=== PATIENT | female | born 1980 | race Caucasian/White ===

== ENCOUNTER 2017-03-23 14:43 | Outpatient (CLI) | payer OTHER ==
[~2017-03-23] VITALS: Ht 157.5 cm; Wt 76.0 kg
[~2017-03-23 14:43] MED LIST: PRENAT PO
[2017-03-23] MEDS ORDERED: LEVO50TA74 PO (14:52)
--- NOTE | 2017-03-23 15:39 | RADRPT ---
PROCEDURE: US OB biophysical profile. CLINICAL INDICATION: decreased movements, IUGR TECHNIQUE: Multiple sonographic images of the pelvis were obtained. The images were reviewed on a PACS workstation. COMPARISON: No prior studies are available for comparison. FINDINGS: There is a single viable intrauterine gestation. Cardiac activity is present with 123 beats per min abigail. There is a vertex presentation. The placenta is posterior. There is no evidence of placental abruption. There is a normal amount of amniotic fluid with an RIZWANA = 13.6 cm. Biophysical profile: movement 2/2 tone 2/2. breathing 2/2 RIZWANA 2/2 Total 05/25 RPTAT: AA . IMPRESSION: Normal biophysical profile. . .Braden Hatfield MD, MD Date Time Electronically viewed and signed by .Braden Hatfield MD, MD on 03/23/2017 15:38 .S/
--- NOTE | 2017-03-23 15:40 | RADRPT ---
PROCEDURE: US OB. CLINICAL INDICATION: Size and dates , IUGR TECHNIQUE: Multiple sonographic images of the pelvis and gravid uterus were obtained. The images were reviewed on a PACS workstation. COMPARISON: No prior studies are available for comparison. FINDINGS: There is a single viable intrauterine gestation. Cardiac activity is present with 131 beats per min [place]k. There is a vertex presentation. The placenta is posterior. There is no evidence of placental abruption. There is a normal amount of amniotic fluid with an RIZWANA = 13.6 cm. Measurements were made in order to determine age. The results are as follows: BPD =8.9 cm HC =31.5 cm AC =33.1 cm FL =7.1 cm Estimated gestational age of approximately 36 weeks and 2 days based on ultrasound measurements. Clinical age: 37 weeks and 6 days. The estimated date of delivery is 04/18/17, based on ultrasound measurements. The EFW = 2974 g, 28%, based on LMP age. RPTAT: AA IMPRESSION: Single viable intrauterine gestation of approximately 36 weeks and 2 days based on ultrasound measu rements. .Braden Hatfield MD, Date Time Electronically viewed and signed by .Braden Hatfield MD, on 03/23/2017 15:39 .S/
[2017-03-23 15:52] VITALS: Ht 157.5 cm; Wt 76.0 kg
[2017-03-23 15:53] VITALS: BP 129/83; PULSE 79; RESP 19
--- NOTE | 2017-03-23 16:28 | TRIAGE ---
OB Triage Datetime Report Generated by CPN: 03/23/2017 16:28 Datetime: 03/23/2017 16:13 Maternal Assessment Level of Consciousness: Fully Conscious DTR's/Clonus: DTRs 1+ Headache: Denies Blurred Vision: No Nausea/Vomiting: Denies RUQ Epigastric Pain: Denies Facial Edema: None Labor Evaluation Frequency: X1 Monitor Mode: External Duration (sec)2399: 50 Quality: Mild Pattern: Normal: <= 5 Contractions in 10 Minutes Resting Tone Arab: Relaxed Heart Rate FHR Baseline Rate: 125 Monitor Mode: External US Variability: Moderate 6-25 bpm Accelerations: 15X15 Decelerations: None Category: Category I Pain Assessment Pain Scale: 0 Pain Presence: None/Denies Pain Type: N/A Pain Goal: 3 Vaginal Exam Membrane Status: Intact Datetime: 03/23/2017 16:01 Maternal Assessment Level of Consciousness: Fully Conscious DTR's/Clonus: DTRs 1+ Headache: Denies Blurred Vision: No Respiratory Effort: Unlabored Breath Sounds, Left: Clear and Equal Breath Sounds, Right: Clear and Equal Nausea/Vomiting: Denies RUQ Epigastric Pain: Denies Facial Edema: None Labor Evaluation Frequency: X1 Monitor Mode: External Duration (sec)2399: 60 Quality: Mild Pattern: Normal: <= 5 Contractions in 10 Minutes Resting Tone Arab: Relaxed Heart Rate FHR Baseline Rate: 125 Monitor Mode: External US Variability: Moderate 6-25 bpm Accelerations: 15X15 Decelerations: None Category: Category I Pain Presence: None/Denies Pain Type: N/A Vaginal Exam Membrane Status: Intact Datetime: 03/23/2017 15:43 Monitor Mode: External US Datetime: 03/23/2017 15:10 Maternal Assessment Level of Consciousness: Fully Conscious DTR's/Clonus: DTRs 1+ Headache: Denies Blurred Vision: No Respiratory Effort: Unlabored Breath Sounds, Left: Clear and Equal Breath Sounds, Right: Clear and Equal Nausea/Vomiting: Denies RUQ Epigastric Pain: Denies Facial Edema: None Labor Evaluation Frequency: X1 Monitor Mode: External Duration (sec)2399: 60 Quality: Mild Pattern: Normal: <= 5 Contractions in 10 Minutes Resting Tone Arab: Relaxed Heart Rate FHR Baseline Rate: 135 Monitor Mode: External US Variability: Moderate 6-25 bpm Accelerations: 15X15 Decelerations: None Category: Category I Pain Assessment Pain Scale: 0 Pain Presence: None/Denies Pain Type: N/A Pain Goal: 3 Vaginal Exam Membrane Status: Intact Datetime: 03/23/2017 14:59 EGA: 37.6 Datetime: 03/23/2017 14:40 Stage of : OB Triage Time of Arrival: 03/23/2017 14:40 Arrived By: Ambulatory Arrived From: Office Chief Complaint: PT CAME IN FROM MD OFFICE TO R/O IUGR Movement: Present Contractions: Denies/Absent Rupture of Membranes: Denies Vaginal Discharge: Denies Recent Sexual Intercouse: Denies Abdominal Trauma: Not Applicable Patient Complaints: Other Additional Patient Complaints: NONE Time Provider Notified: 03/23/2017 14:40 Provider Notified: DR ARANDA Initial Plan: ASIF HOBBS AND EFW
--- NOTE | 2017-03-23 16:37 | CONS ---
Date/Time of Note Date/Time of Note DATE: 03/23/17 TIME: 16:31 Consultation Date/Type/Reason Admit Date/Time March 23, 2007 OB triage consult Reason for Consultation This patient is a 36 years old 5 para 3 1 with estimated date of confinement is April 11, 2016 which makes her 37 weeks and 6 days She came to the triage due to intrauterine growth retardation for further evaluation regarding this diagnosis. She is currently on levothyroxine 50 mcg and her regular vitamin Physical examination she is a well-developed well-nourished lady near term Her general vital signs appear to be normal blood pressure 129/83, pulse rate 79 , respiration 18. On examination her abdomen was soft irregular occasional contractions The heart tones were normal with good variability occasional acceleration and no deceleration. On pelvic examination her cervix was closed thick and high no evidence of labor or bleeding Constitutional: No chills, No diaphoresis, No disoriented, No febrile, No improved, No no complaints, No other, No poor po, No requiring IVF, No requiring O2 Eyes: No discharge, No no complaints, No other, No pain, No redness, No visual change ENT: No bleeding, No congestion, No discharge, No dysphagia, No no complaints, No other, No pain, No sore throat Respiratory: No cough, No no complaints, No other, No pain, No pleuritic pain, No shortness of breath, No sputum, No wheezing Cardiovascular: No chest pain, No edema, No lightheadedness, No no complaints, No orthopenea, No other, No palpitations, No paroxysmal nocturnal dyspnea Gastrointestinal: other (Her cervix was closed thick and Crista as I mentioned before), No blood, No constipation, No decreased appetite, No diarrhea, No flatus, No nausea, No no complaints, No pain, No passing stool, No vomiting Genitourinary: No bleeding, No discharge, No dysuria, No flank pain, No hematuria, No no complaints, No other Musculoskeletal: No back pain, No bone/joint pain, No neck pain, No no complaints, No other, No restricted range of motion, No swelling Skin: No bruising, No erythema, No laceration, No no complaints, No other, No pruritis, No rash, No skin lesions Neurologic: other (Knee-jerk reflex were normal), No confusion, No dizziness, No focal-weakness, No headache, No no complaints , No seizure, No syncope Endocrine: No dry skin, No no complaints, No other, No polydypsia, No polyuria , No temp intolerance Additional Comments On ultrasound study there was a single viable intrauterine gestation with heart rate of 131 bpm, in vertex presentation for gestational age based on the measurement was 37 weeks and 6 days with estimated date of April 18, 2017 estimated , weight was 2974 g which makes her 28% based on last LMP. she had a biophysical profile result was 05/25 and her RIZWANA was reported 13.6 cm . Disposition; with these finding patient was discharged home to be followed in clinic and to return for any other concerns about the other aspect of including IUGR Social History Smoking Status: Never smoker Exam/Review of Systems Vital Signs Vitals Vital Signs Date Time Temp Pulse Resp B/P Pulse Ox O2 Delivery O2 Flow Rate FiO2 03/23/17 15:53 98.6 79 19 129/83 99 MELLISSA ADAN MD Mar 23, 2017 16:36
== END 2017-03-23 16:27 | disposition home or self-care (01) ==
LOC: OBT 14:43 → L-D 14:44 → OBT 16:27
PROVIDERS: ATTEND Obstetrics & Gynecology
DX: O36.5930 Maternal care for other known or suspected poor fetal growth, third trimester, not applicable or unspecified (principal); O26.843 Uterine size-date discrepancy, third trimester; O36.8130 Decreased fetal movements, third trimester, not applicable or unspecified; O09.523 Supervision of elderly multigravida, third trimester; Z3A.37 37 weeks gestation of pregnancy
CPT/HCPCS: 76815; 76818; Z7500; G0463

== ENCOUNTER 2017-03-31 09:00 | Inpatient (IN) | payer OTHER ==
[~2017-03-31] VITALS: Ht 154.9 cm; Wt 76.3 kg
[~2017-03-31 09:00] MED LIST changes: +LEVO50TA74 PO
[2017-03-31 09:32] VITALS: Ht 154.9 cm; Wt 76.3 kg
[2017-03-31] MEDS ORDERED: FER325 PO (09:35)
[2017-03-31] MEDS ORDERED: LIDOCAINE 1% (MPF) 30 ML INJ INJ PRN (10:00)
[2017-03-31] MEDS ORDERED: CARBOPROST 250 MCG INJ IM PRN (10:00)
[2017-03-31] MEDS ORDERED: OXYTOCIN 30 UNITS/LR 500 ML IV PRN (10:00)
[2017-03-31] MEDS ORDERED: BUTORPHANOL 2 MG INJ IV PRN (10:00)
[2017-03-31] MEDS ORDERED: OXYTOCIN 30 UNITS/LR 500 ML IV SCH (10:00)
[2017-03-31] MEDS ORDERED: IBUPROFEN 600 MG TAB PO PRN (10:00)
[2017-03-31] MEDS ORDERED: METHYLERGONOVINE 0.2 MG INJ IM PRN (10:00)
[2017-03-31] MEDS ORDERED: MISOPROSTOL 200 MCG TAB PR PRN (10:00)
[2017-03-31] MEDS: LACTATED RINGER'S 1,000 ML IV SCH ×2 (10:22→18:17)
[2017-03-31 10:25] VITALS: BP 118/72; RESP 19
[2017-03-31] MEDS ORDERED: AMPICILLIN 2 GM/NS (PMX) 100 ML IVPB ONE (10:30)
[2017-03-31 10:58] LABS: ADD SCAN DIFF NO
[2017-03-31] MEDS ORDERED: DINOPROSTONE 10 MG VAG SUPP VAG ONE (11:00)
[2017-03-31 11:04] LABS: BASOPHILS % 0.3 % (0.0-2.0); EOSINOPHILS # 0.1 10^3/ul (0.0-0.5); EOSINOPHILS % 1.6 % (0.0-7.0); HEMATOCRIT 37.2 % (37.0-47.0); HEMOGLOBIN 12.8 g/dl (12.0-16.0); LYMPHOCYTES # 1.7 10^3/ul (0.8-2.9); LYMPHOCYTES % 24.2 % (15.0-51.0); MEAN CORPUSCULAR HEMOGLOBIN 31.4 pg (29.0-33.0); MEAN CORPUSCULAR HGB CONC 34.4 g/dl (32.0-37.0); MEAN CORPUSCULAR VOLUME 91.2 fl (82.0-101.0); MEAN PLATELET VOLUME 11.3 fl (7.4-10.4); MONOCYTE # 0.6 10^3/ul (0.3-0.9); MONOCYTES % 8.3 % (0.0-11.0); NEUTROPHIL # 4.5 10^3/ul (1.6-7.5); NEUTROPHILS % 65.3 % (39.0-77.0); PLATELET COUNT 211 10^3/UL (140-415); RED BLOOD COUNT 4.08 10^6/ul (4.20-5.40); RED CELL DISTRIBUTION WIDTH 13.7 % (11.5-14.5); WHITE BLOOD COUNT 6.9 10^3/ul (4.8-10.8)
[2017-03-31 11:29] LABS: INR 0.91; PARTIAL THROMBOPLASTIN TIME 29.8 Sec (25.0-35.0); PROTIME 12.3 Sec (12.2-14.2)
[2017-03-31 12:16] LABS: BARBITURATES Negative (NEGATIVE); BENZODIAZEPINES Negative (NEGATIVE); CANNABINOIDS Negative (NEGATIVE); COCAINE Negative (NEGATIVE); OPIATES Negative (NEGATIVE)
[2017-03-31] MEDS: AMPICILLIN 1 GM/NS (PMX) 50 ML IVPB SCH ×3 (13:40→21:09)
[2017-03-31] MEDS ORDERED: LACTATED RINGER'S 1,000 ML IV PRN (20:00)
[2017-03-31] MEDS: BUTORPHANOL 2 MG INJ IV PRN (23:41)
[2017-04-01] MEDS ORDERED: OXYTOCIN 30 UNITS/LR 500 ML IV SCH
--- NOTE | 2017-04-01 00:16 | HP ---
Date/Time of Note Date/Time of Note DATE: 03/31/17 TIME: 23:59 OB - History Hx of Present Free Text/Dictation 36y.o A1(!A) at 39w for induction of labor for IUGR GBS positive VE closed long -3 cervidil ampicillin Chief Complaint: induction Estimated Due Date: Apr 07, 2017 : 5 Para: 3 Spontaneous : 0 Therapeutic : 1 Care: Good Care Ultrasounds: Normal mid trimester US Obstetrical Complications: Growth Restriction Medical Complications: None Past Family/Social History * Past Medical, Surgical, Family and Obstetric Histories reviewed from chart. Blood Type: O+ Rubella: immune RPR/VDRL: Negative GBS Status: Positive HBsAG: Negative OB Admission Exam Vital Signs Vital Signs Vital Signs Date Time Temp Pulse Resp B/P Pulse Ox O2 Delivery O2 Flow Rate FiO2 03/31/17 10:25 98.2 19 118/72 Room Air Physical Exam HEENT: WNL Heart: Rhythm Normal Lungs: Clear, Equal Abdomen: WNL Extremities: Normal Reflexes: Normal Cervical Dilatation: None Station: -3 Membranes: Intact Amniotic Fluid: Unevaluable Heart Rate: 120's Accelerations: Accelerations Present Decelerations: No Decelerations Varibility: Moderate Contractions on Admission: >10 Minutes Apart Intensity: Mild Last 72 hours Lab Results CBC & BMP 03/31/17 10:05 OB Assessment/Plan Reason for admission: induction of labor Plan: Induction Induction Method: per Misoprostol Protocol BECKY ARANDA MD Apr 01, 2017 00:12
[2017-04-01] MEDS: AMPICILLIN 1 GM/NS (PMX) 50 ML IVPB SCH ×6 (01:12→20:48)
[2017-04-01] MEDS: LACTATED RINGER'S 1,000 ML IV SCH ×3 (03:06→19:17)
[2017-04-01] MEDS: BUTORPHANOL 2 MG INJ IV PRN ×2 (07:34→20:53)
[2017-04-01] MEDS: LEVOTHYROXINE 50 MCG TAB PO SCH (18:07)
[2017-04-02] MEDS: AMPICILLIN 1 GM/NS (PMX) 50 ML IVPB SCH ×2 (01:08→05:14)
[2017-04-02] MEDS: LACTATED RINGER'S 1,000 ML IV SCH ×2 (02:19→05:12)
[2017-04-02] MEDS: BUTORPHANOL 2 MG INJ IV PRN (02:28)
[2017-04-02] MEDS ORDERED: FENTAnyl 2MCG/ML-ROPIV 0.2% 100 ML ONE (02:48)
[2017-04-02] MEDS ORDERED: FENTAnyl 2MCG/ML-ROPIV 0.2% 100 ML BAG EPI SCH (03:30)
[2017-04-02] MEDS ORDERED: ONDANSETRON 4 MG INJ IV PRN (03:30)
[2017-04-02] MEDS ORDERED: EPHEDrine SULFATE 50 MG/5 ML SYG IV PRN (03:30)
[2017-04-02] MEDS ORDERED: NALOXONE (0.4 MG/ML) INJ IV PRN (03:30)
[2017-04-02] MEDS: LEVOTHYROXINE 50 MCG TAB PO SCH (06:02)
[2017-04-02] MEDS ORDERED: MINERAL OIL LIGHT 10 ML VIAL TOP ONE (07:00)
[2017-04-02 09:00] VITALS: BP 126/67; PULSE 67; RESP 18
[2017-04-02 09:30] VITALS: BP 122/60; PULSE 60; RESP 18
[2017-04-02] MEDS ORDERED: OXYTOCIN 30 UNITS/LR 500 ML IV PRN (09:30)
[2017-04-02] MEDS ORDERED: ACETAMINOPHEN 325 MG TAB PO PRN (09:30)
[2017-04-02] MEDS ORDERED: ZOLPIDEM 5 MG TAB PO PRN (09:30)
[2017-04-02] MEDS ORDERED: OXYCODONE/ASPIRIN (4.88/325) TAB PO PRN ×2 (09:30)
[2017-04-02] MEDS ORDERED: WITCH HAZEL/GLYCERIN PAD PR PRN (09:30)
[2017-04-02] MEDS ORDERED: BENZOCAINE 20% 56 ML SPRAY TOP PRN (09:30)
[2017-04-02] MEDS ORDERED: METHYLERGONOVINE 0.2 MG INJ IM PRN (09:30)
[2017-04-02] MEDS ORDERED: MISOPROSTOL 200 MCG TAB PR PRN (09:30)
[2017-04-02] MEDS ORDERED: CARBOPROST 250 MCG INJ IM PRN (09:30)
[2017-04-02] MEDS ORDERED: LANOLIN 7 GM TUBE TOP PRN (09:30)
[2017-04-02] MEDS ORDERED: LACTATED RINGER'S 1,000 ML IV* SCH (09:30)
[2017-04-02] MEDS ORDERED: IBUPROFEN 800 MG TAB PO SCH (09:30)
[2017-04-02] MEDS: MULTIVIT/MIN/FOLATE/IRON/PREN TAB PO SCH (10:03)
[2017-04-02] MEDS: FERROUS SULFATE (EC) 325 MG TAB PO SCH (10:03)
[2017-04-02] MEDS: SENNA/DOCUSATE NA (8.6MG/50MG) TAB PO SCH ×2 (10:06→21:45)
[2017-04-02] MEDS: OXYTOCIN 30 UNITS/LR 500 ML IV SCH ×2 (11:55→13:19)
[2017-04-02] MEDS: IBUPROFEN 600 MG TAB PO SCH ×2 (12:00→16:27)
[2017-04-02 12:47] VITALS: BP 94/52; PULSE 67; RESP 18
[2017-04-02 16:00] VITALS: BP 120/66; PULSE 66; RESP 18
--- NOTE | 2017-04-02 17:38 | LDN ---
Date/Time of Note Date/Time of Note DATE: 04/02/17 TIME: 17:33 Delivery Summary normal vaginal delivery Weeks of Gestation 39w2d Placenta Delivered: Spontaneously Meconium: none Episiotomy: No Perineal laceration: 0 Anesthesia type: Epidural Sponge & Needle done & correct: Yes All needle counts correct: Yes Any foreign bodies felt in the: No Problems: Mother & Baby Disposition Disposition Mom & Baby to Maternity; Good: Yes Mom transferred to: Other () Baby to NICU: No BECKY ARANDA MD Apr 02, 2017 17:38
[2017-04-02 20:25] VITALS: BP 109/61; PULSE 74; RESP 18
[2017-04-03 00:15] VITALS: BP 102/66; PULSE 69; RESP 17
[2017-04-03] MEDS: IBUPROFEN 600 MG TAB PO SCH ×5 (00:17→23:42)
[2017-04-03 04:10] VITALS: BP 103/61; PULSE 70; RESP 17
--- NOTE | 2017-04-03 05:46 | PN ---
Date/Time of Note Date/Time of Note DATE: 04/03/17 TIME: 05:42 OB Subjective Subjective Subjective no c/o except afterpain OB Objective Objective Objective vss aferbrle fundus firm lochia min calf no tenderness OB Assessment/Plan Other Assessment: stable post vaginal delivery #1 Other plan: d/s home in am BECKY ARANDA MD Apr 03, 2017 05:46
[2017-04-03] MEDS: LEVOTHYROXINE 50 MCG TAB PO SCH (06:29)
[2017-04-03 07:48] LABS: ADD SCAN DIFF NO
[2017-04-03 07:55] LABS: BASOPHILS % 0.2 % (0.0-2.0); EOSINOPHILS # 0.2 10^3/ul (0.0-0.5); EOSINOPHILS % 1.9 % (0.0-7.0); HEMATOCRIT 32.1 % (37.0-47.0); LYMPHOCYTES # 2.3 10^3/ul (0.8-2.9); LYMPHOCYTES % 26.1 % (15.0-51.0); MEAN CORPUSCULAR HEMOGLOBIN 31.1 pg (29.0-33.0); MEAN CORPUSCULAR HGB CONC 34.3 g/dl (32.0-37.0); MEAN CORPUSCULAR VOLUME 90.7 fl (82.0-101.0); MEAN PLATELET VOLUME 11.4 fl (7.4-10.4); MONOCYTE # 0.6 10^3/ul (0.3-0.9); MONOCYTES % 6.7 % (0.0-11.0); NEUTROPHIL # 5.6 10^3/ul (1.6-7.5); NEUTROPHILS % 64.9 % (39.0-77.0); PLATELET COUNT 164 10^3/UL (140-415); RED BLOOD COUNT 3.54 10^6/ul (4.20-5.40); RED CELL DISTRIBUTION WIDTH 13.8 % (11.5-14.5); WHITE BLOOD COUNT 8.6 10^3/ul (4.8-10.8)
[2017-04-03 08:40] VITALS: BP 110/69; PULSE 76; RESP 17
[2017-04-03] MEDS: SENNA/DOCUSATE NA (8.6MG/50MG) TAB PO SCH ×2 (08:42→21:00)
[2017-04-03] MEDS: FERROUS SULFATE (EC) 325 MG TAB PO SCH (08:42)
[2017-04-03] MEDS: MULTIVIT/MIN/FOLATE/IRON/PREN TAB PO SCH (08:42)
[2017-04-03 16:00] VITALS: BP 98/59; PULSE 77; RESP 17
[2017-04-03 20:00] VITALS: BP 119/80; PULSE 66; RESP 20
[2017-04-03 23:45] VITALS: BP 111/65; PULSE 67; RESP 18
[2017-04-04 04:00] VITALS: BP 104/66; PULSE 71; RESP 18
[2017-04-04] MEDS: IBUPROFEN 600 MG TAB PO SCH ×2 (05:34→12:03)
[2017-04-04] MEDS: LEVOTHYROXINE 50 MCG TAB PO SCH (06:34)
[2017-04-04 08:00] VITALS: BP 107/73; PULSE 66; RESP 20
[2017-04-04] MEDS: SENNA/DOCUSATE NA (8.6MG/50MG) TAB PO SCH (08:50)
[2017-04-04] MEDS ORDERED: DIPHTH/TET/ACEL PERTUSS (ADULT) 0.5 ML VIAL IM* ONE (09:00)
[2017-04-04] MEDS: FERROUS SULFATE (EC) 325 MG TAB PO SCH (09:55)
[2017-04-04] MEDS: MULTIVIT/MIN/FOLATE/IRON/PREN TAB PO SCH (09:55)
--- NOTE | 2017-04-04 10:25 | PD.PPDC ---
DATE NIGHT SITTER Discharge Instruction Diagnosis Final Diagnosis: s/p normal vaginal delivery Condition Patient Condition: Stable Diet Diet: Resume Regular Diet Activity/Restrictions Activity: May Shower Restrictions: Nothing in the Vagina No [place] No Tampons, douche Follow-up Follow-up with Physician: 6, Week/Weeks Return to clinic for [employer] Instructions: Fever greater than 101 Chills Worsening abdominal pain Excessive Vaginal Bleeding More than 2 pads per hour Unable to tolerate diet OB Instructions: Breast Tenderness Depression Blurried Vision Headache BECKY ARANDA MD Apr 04, 2017 10:25
--- NOTE | 2017-04-04 10:27 | DS ---
Date/Time of Note Date/Time of Note DATE: 04/04/17 TIME: 10:26 Obstetrical Discharge Record Final Diagnosis Final Diagnosis: Term delivered Vaginal Delivery Obstetrical Delivery: Spontaneous Complications Induction: Yes Rupture of Membranes: No Condition on Discharge Physical Assessment Last Vitals: vss afebrile Voiding: Yes Bowel Movement: Yes Breast: Soft, non-tender Fundus: Firm Calf Tenderness: No Patient Condition: Stable BECKY ARANDA MD Apr 04, 2017 10:27
== END 2017-04-04 16:15 | disposition home or self-care (01) | DRG 775 ==
LOC: L-D 09:20 → PP1 04-02 08:53
PROVIDERS: ADMIT Obstetrics & Gynecology; ATTEND Obstetrics & Gynecology
PROC: 10E0XZZ Delivery of Products of Conception, External Approach (ICD-10-PCS; principal; 2017-04-02)
PROC: 3E0P7GC Introduction of Other Therapeutic Substance into Female Reproductive, Via Natural or Artificial Opening (ICD-10-PCS; 2017-04-02)
PROC: 3E0234Z Introduction of Serum, Toxoid and Vaccine into Muscle, Percutaneous Approach (ICD-10-PCS; 2017-04-02)
DX: O36.5930 Maternal care for other known or suspected poor fetal growth, third trimester, not applicable or unspecified (principal); O99.824 Streptococcus B carrier state complicating childbirth; O09.523 Supervision of elderly multigravida, third trimester; Z3A.39 39 weeks gestation of pregnancy; Z37.0 Single live birth; Z23 Encounter for immunization
CPT/HCPCS: 62319; 80307; 85025; 85610; 85730; 86592; 86900; 86901; 87340; 90715; J0290; J0595; J2590; J3010; J7120

== ENCOUNTER 2017-07-16 19:13 | Emergency (ER) | payer OTHER ==
[~2017-07-16] VITALS: Ht 162.6 cm; Wt 69.0 kg
[~2017-07-16 19:13] MED LIST changes: +FER325 PO
[2017-07-16 19:25] VITALS: Ht 162.6 cm; Wt 69.0 kg
[2017-07-16] MEDS ORDERED: IBUP400T22 PO (19:59)
--- NOTE | 2017-07-16 20:05 | ERA ---
ER Documentation Chief Complaint Date/Time DATE: 07/16/17 TIME: 20:00 Chief Complaint eye pain, back pain, body aches HPI Otherwise healthy 37-year-old female presenting with a chief complaint of general malaise, body aches, pharyngitis 1 day. Denies fever, chills, headache , back pain, eye pain, sysphagia, odynophagia, difficulty breathing, shortness of breath. Sick contact is patient's sister. Has not taken any medications for these symptoms. Patient has no other complaints and describes no other associated manifestations. ROS All systems reviewed and are negative except as per history of present illness. Medications Home Meds Active Scripts Ibuprofen* (Motrin*) 400 Mg Tab, 400 MG PO Q6, #30 TAB Prov:ELEUTERIO IBRAHIM PA-C 07/16/17 Multivit/Min/Fol Ac/Iron/Pren* ( S*) 1 Tab Tab, 1 TAB PO DAILY, #90 TAB Prov:JOANNE VALLADARES MD 09/25/16 Reported Medications Ferrous Sulfate* (Ferrous Sulfate*) 325 Mg Tabec, 325 MG PO DAILY, TAB 03/31/17 Levothyroxine Sodium* (Levothyroxine Sodium*) 50 Mcg Tablet, 50 MCG PO BEFORE BREAKFAST, #30 TAB 03/23/17 Allergies Allergies: Coded Allergies: No Known Allergy (Verified , 03/31/17) PMhx/Soc History of Surgery: No Anesthesia Reaction: No Hx Neurological Disorder: No Hx Respiratory Disorders: No Hx Cardiac Disorders: No Hx Psychiatric Problems: No Hx Miscellaneous Medical Probl: No Hx Alcohol Use: Yes (STOPPED 09/02) Hx Substance Use: No Hx Tobacco Use: Yes Smoking Status: Former smoker Physical Exam Vitals Vital Signs Date Time Temp Pulse Resp B/P Pulse Ox O2 Delivery O2 Flow Rate FiO2 07/16/17 19:25 97.3 72 20 133/79 98 Physical Exam Const: Well-appearing 37-year-old female no acute distress. Head: Atraumatic Eyes: Normal Conjunctiva ENT: Postnasal drip visualized. Normal External Ears, Nose and Mouth. Neck: Nontender lymphadenopathy. Tonsils within normal limits. No exudates visualized. Full range of motion..~ No meningismus. Resp: Clear to auscultation bilaterally Cardio: Regular rate and rhythm, no murmurs Abd: Soft, non tender, non distended. Normal bowel sounds Skin: No petechiae or rashes Back: No midline or flank tenderness Ext: No cyanosis, or edema Neur: Awake and alert Psych: Normal Mood and Affect Procedures/MDM 37-year-old female presenting with signs and symptoms most consistent with viral pharyngitis versus viral illness as described in history and physical examination. I will suspicion for endangerment of the airway, or serious bacterial infection including pneumonia and meningitis. Patient will be given ibuprofen for discomfort. No antibiotics are indicated at this time. I have spoke with the patient regarding their condition and future management. They have verbally responded that they understand their status and treatment plan. The patients vitals are stable, and their current condition is appropriate for discharge. The patient will be given discharge instructions with return precautions. Departure Diagnosis: Primary Impression: Viral illness Additional Impressions: URI (upper respiratory infection) Qualified Code: J06.9 - Upper respiratory tract infection, unspecified type Acute non-recurrent sinusitis Qualified Code: J01.90 - Acute non-recurrent sinusitis, unspecified location Pharyngitis Qualified Code: J02.9 - Pharyngitis, unspecified etiology Condition: Stable Referrals: AD LENTZ (PCP) Additional Instructions: Follow up with your PCP within the next 1-3 days for a more thorough evaluation and a possible referral to a specialist. Return the the emergency department immediately if symptoms worsen or change. If you have any questions regarding medications, ask your pharmacist or us before you leave. If any adverse reactions occur while taking your medications, discontinue the treatment and return to the emergency department immediately. Take your medications as directed, and complete the entire course of treatment. ELEUTERIO IBRAHIM PA-C Jul 16, 2017 20:05
== END 2017-07-16 20:21 | disposition home or self-care (01) ==
LOC: FTE 19:13
DX: B34.9 Viral infection, unspecified (principal); J06.9 Acute upper respiratory infection, unspecified; J01.90 Acute sinusitis, unspecified; J02.9 Acute pharyngitis, unspecified; Z87.891 Personal history of nicotine dependence
CPT/HCPCS: 99283

== ENCOUNTER 2017-08-17 13:27 | Emergency (ER) | payer OTHER ==
[~2017-08-17] VITALS: Wt 67.9 kg
[~2017-08-17 13:27] MED LIST changes: +IBUP400T22 PO
[2017-08-17] MEDS ORDERED: HYDROCODONE/APAP (5/325) TAB PO ONE (14:00)
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
--- NOTE | 2017-08-17 14:48 | RADRPT ---
PROCEDURE: XR Sacrum and Coccyx. CLINICAL INDICATION: Low back pain TECHNIQUE: AP and lateral views of the sacrum and coccyx were performed. COMPARISON: No prior studies are available for comparison. FINDINGS: A curvilinear lucency is seen in the distal coccyx, questionable if this represents a nondisplaced f racture. No other fracture is suspected. No dislocation or subluxation is seen. There is otherwise n ormal sacral and coccygeal mineralization and alignment. The sacroiliac joints appear normal. The so ft tissues are unremarkable. IMPRESSION: Questionable nondisplaced fracture of the distal coccyx. Consider confirmation with a CT as clinical ly warranted. RPTAT: HPNM Physician Lois Date Time Electronically viewed and signed by Physician Lois on 08/17/2017 14:48 /
--- NOTE | 2017-08-17 14:49 | RADRPT ---
PROCEDURE: XR L-Spine. CLINICAL INDICATION: Low back pain. TECHNIQUE: AP, lateral, and cone down views of the lumbar spine were obtained. COMPARISON: None FINDINGS: The lumbar lordosis is straightened. The vertebral body and disk space heights are normal. No acut e fracture or subluxation is seen. No paravertebral soft tissue abnormality is seen. Cholecystectom y clips are seen. IMPRESSION: Straightening of the lumbar lordosis. Otherwise, unremarkable lumbar spine series. RPTAT: HPNM Physician Lois Date Time Electronically viewed and signed by Kasi Lerma Physician on 08/17/2017 14:49 /
[2017-08-17] MEDS ORDERED: TRAM50TA2 PO (15:18)
[2017-08-17] MEDS ORDERED: NAPR-260 PO (15:19)
== END 2017-08-17 15:59 | disposition home or self-care (01) ==
LOC: FTE 13:27
DX: S32.2XXA Fracture of coccyx, initial encounter for closed fracture (principal); F17.210 Nicotine dependence, cigarettes, uncomplicated; X58.XXXA Exposure to other specified factors, initial encounter; Y92.89 Other specified places as the place of occurrence of the external cause
CPT/HCPCS: 72100; 72220; 81003; Z7502; Z7610